=== PATIENT | female | born 1975 | race Caucasian/White ===

== ENCOUNTER → 2020-02-22 | Outpatient (CLI) | payer OTHER, SELFPAY ==
[2020-02-22 08:45] VITALS: BMI 32.8
== END | disposition home or self-care (01) ==
LOC: LABSPEC 02-27 12:30
PROVIDERS: Referring Provider Physician Assistant; Visit Provider Physician Assistant
DX: Z20.828 Contact with and (suspected) exposure to other viral communicable diseases (principal)
CPT/HCPCS: 87635; C9803; U0003

== ENCOUNTER → 2020-10-04 | Outpatient (CLI) | payer OTHER, SELFPAY ==
[2020-10-04 09:10] VITALS: BMI 34.2
[2020-10-09 13:46] LABS: HPV APTIMA, High Risk Negative (Negative)
== END | disposition home or self-care (01) ==
PROVIDERS: Referring Provider Obstetrics & Gynecology; Visit Provider Obstetrics & Gynecology
DX: Z12.4 Encounter for screening for malignant neoplasm of cervix (principal)
CPT/HCPCS: 87624; 88175; G0145

== ENCOUNTER → 2020-11-08 08:01 | Outpatient (CLI) | payer OTHER, SELFPAY ==
[2020-10-04 09:10] VITALS: BMI 34.2
--- NOTE | 2020-11-08 08:21 | BI_ITS ---
MAMMOGRAPHY - BILATERAL SCREENING 3-D TOMOSYNTHESIS REASON FOR EXAM: Female, 45 years old. screening mammogram PERTINENT HISTORY: No significant family history. TECHNIQUE: 2-D mammograms and 3-D Tomosynthesis of the breast (s) were performed. CAD was performed. COMPARISON: 2019 FINDINGS: The breast composition is heterogeneously dense that can obscure small breast masses. Scattered benign calcifications are seen. No dense spiculated masses or suspicious microcalcifications are identified. No architectural distortion is identified. There is no skin thickening or retraction. There has been no significant change since the prior study. BI/SCRN MAMM (CAD)W/ANGELA BILAT IMPRESSION: No mammographic signs of malignancy. Routine yearly mammograms recommended. ASSESSMENT CATEGORY: BIRADS Category 2: Benign. A letter regarding these results will be sent to the patient by the facility within 30 days. FOLLOW UP RECOMMENDATION: Yearly follow up mammogram recommended. (A) Approximately 10% of breast cancers are not detected by mammography. A normal mammogram should not delay biopsy of a clinically suspicious abnormality. Electronically Signed: Rob Pacheco MD at 9:43 EDT , Service support ,
== END ==
PROVIDERS: Referring Provider Obstetrics & Gynecology; Visit Provider Obstetrics & Gynecology
DX: Z12.31 Encounter for screening mammogram for malignant neoplasm of breast (principal)
CPT/HCPCS: 77063; 77067

== ENCOUNTER → 2021-11-14 | Outpatient (CLI) | payer OTHER, SELFPAY ==
--- NOTE | 2021-11-14 08:08 | US_ITS ---
INDICATION: abnormal uterine bleeding EXAMINATION: Ultrasound US Transvaginal Non-OB TECHNIQUE: Transvaginal (for optimal evaluation of the adnexa) pelvic ultrasound was performed. Grayscale, spectral waveform, and color flow Doppler evaluation of the adnexa. COMPARISON: None. FINDINGS: UTERUS: The uterus is anteverted, and demonstrates unremarkable echogenicity, unremarkable vascularity, unremarkable size, shape and configuration, no evidence of myometrial masses is seen. The uterus measures 9.0 x 5.8 x 4.8 cm The endometrial stripe measures 0.9 cm in AP diameter which is within normal limits. No evidence of endometrial masses or fluid. RIGHT OVARY: The right ovary measures 2.3 x 1.6 x 1.6 cm.. Non-enlarged, normal echogenicity. There is normal arterial inflow and venous outflow present in the right ovary. LEFT OVARY: The left ovary was not visualized, no evidence of left adnexal masses.. FREE FLUID: None. US/Pelvic (Non ) IMPRESSION: Left ovary was not visualized. Unremarkable pelvic ultrasound. Electronically Signed: Ramsey Sanz MD at 11:19 EDT ,
--- NOTE | 2021-11-14 08:08 | US_ITS ---
INDICATION: abnormal uterine bleeding EXAMINATION: Ultrasound US Transvaginal Non-OB TECHNIQUE: Transvaginal (for optimal evaluation of the adnexa) pelvic ultrasound was performed. Grayscale, spectral waveform, and color flow Doppler evaluation of the adnexa. COMPARISON: None. FINDINGS: UTERUS: The uterus is anteverted, and demonstrates unremarkable echogenicity, unremarkable vascularity, unremarkable size, shape and configuration, no evidence of myometrial masses is seen. The uterus measures 9.0 x 5.8 x 4.8 cm The endometrial stripe measures 0.9 cm in AP diameter which is within normal limits. No evidence of endometrial masses or fluid. RIGHT OVARY: The right ovary measures 2.3 x 1.6 x 1.6 cm.. Non-enlarged, normal echogenicity. There is normal arterial inflow and venous outflow present in the right ovary. LEFT OVARY: The left ovary was not visualized, no evidence of left adnexal masses.. FREE FLUID: None. US/Transvaginal Non- IMPRESSION: Left ovary was not visualized. Unremarkable pelvic ultrasound. Electronically Signed: Ramsey Sanz MD at 11:19 EDT ,
== END | disposition home or self-care (01) ==
LOC: US 08:05
PROVIDERS: Referring Provider Obstetrics & Gynecology; Visit Provider Obstetrics & Gynecology
DX: N93.9 Abnormal uterine and vaginal bleeding, unspecified (principal)
CPT/HCPCS: 76830; 76856

== ENCOUNTER → 2021-12-05 | Outpatient (CLI) | payer OTHER, SELFPAY ==
--- NOTE | 2021-12-05 | EMB_PTH ---
PATIENT: ELROY CASTELLON LOC: [facility] U#:[id number] AGE/SX: 46/F ROOM: RE12/05/[address]: Dr. Luzmaria Diaz MD : 1975 BED: DIS: 12/05/2021 SPEC #: [id number] RECD: 12/05/21 16:43 STATUS: LEE REQ #: [id number] JAMEEL: 12/05/21 00:[address]: Luzmaria Diaz DEPT: SURGICAL PATHOLOGY RECD BY: Keeley Matute ENTERED: 12/08/21 08:10 SP TYPE: ENDOM BX/C SKIP DR: No Primary Care Phys Tissues: Endometrium, NOS Procedures: Surgery Specimen Level IV HEADER OPERATION: Endometrial biopsy PRE-OP DIAGNOSIS: Abnormal uterine bleeding TISSUE SUBMITTED: Endometrial biopsy MICROSCOPIC DIAGNOSIS Endometrial biopsy: Disordered proliferative endometrium. NOELLE:herberth 12/09/2021 MICROSCOPIC DESCRIPTION Slides are reviewed. GROSS DESCRIPTION Received is one container labeled with the patient's name and not further designated. The specimen consists of multiple irregular fragments of pink soft tissue mixed with mucoid tissue that in aggregate measure 1.5 x 1 x 0.1 cm. The specimen is totally submitted in one cassette. / SJ:herberth 12/08/2021 TC:5 CPT: 95955
--- NOTE | 2021-12-05 12:39 | BI_ITS ---
MAMMOGRAPHY - BILATERAL SCREENING REASON FOR EXAM: Female, 46 years old. Routine annual screening examination. PERTINENT HISTORY: Grandmother with breast cancer. TECHNIQUE: Digital bilateral breast angela (3D mammographic acquisition) in the CC and MLO projections. 2-D mediolateral oblique (MLO) and craniocaudad (CC) views of both breasts were obtained. CAD: Full Field Digital Mammography with Computer Added Detection was performed. COMPARISON: Comparison is made with prior examination dated 11/08/2020. FINDINGS: Breast Composition: The breasts are heterogeneously dense, which may obscure small masses. There are no dominant masses or suspicious calcifications. Stable small benign-appearing bilateral axillary lymph nodes. No other significant abnormalities are identified. There has been no significant change since the prior study. BI/SCRN MAMM (CAD)W/ANGELA BILAT IMPRESSION: Stable bilateral screening mammogram. Yearly follow-up mammogram recommended. (A) ASSESSMENT CATEGORY: BIRADS Category 2: Benign. A letter regarding these results will be sent to the patient by the facility within 30 days. Approximately 10% of breast cancers are not detected by mammography. A normal mammogram should not delay biopsy of a clinically suspicious abnormality. [id number] Electronically Signed: Haja Gamble MD at 13:35 EDT ,
== END | disposition home or self-care (01) ==
LOC: OPBI 12:38
PROVIDERS: Referring Provider Obstetrics & Gynecology; Visit Provider Obstetrics & Gynecology
DX: Z12.31 Encounter for screening mammogram for malignant neoplasm of breast (principal); N93.9 Abnormal uterine and vaginal bleeding, unspecified
CPT/HCPCS: 77063; 77067; 88305

== ENCOUNTER → 2022-05-01 | Outpatient (CLI) | payer OTHER, SELFPAY ==
[2022-05-01 12:31] LABS: Absolute Lymphocyte Count 1.72 X10^3/uL (0.83-4.51); Absolute Neutrophil Count 2.9 X10^3/uL (2.0-7.7); Basophil# 0.11 X10^3/uL; Eosinophil# 0.22 X10^3/uL; Eosinophils% 4.1 % (0-5); Hemoglobin 15.1 g/dL (12.0-15.0); Lymphocyte # 1.72 X10^3/ul (0.83-4.51); Lymphocyte % 31.7 % (19-41); Mean Corp Hgb Conc 33.6 g/dL (32-36); Mean Corpuscular Hgb 30.8 pg (27.0-32.0); Mean Corpuscular Volume 91.8 fL (81-99); Mean Platelet Vol. 9.4 fl (6.2-12.0); Monocyte# 0.47 X10^3/uL; Monocyte% 8.7 % (0-10); NRBC Flagged by Analyzer 0 % (0-5); Neutrophil % 53.3 % (47-70); Platelet Count 353 K/mm3 (150-450); RBC Distribution Width CV 12.8 % (11.6-14.6); RBC Distribution Width SD 43.2 fl (35.1-43.9); White Blood Count 5.4 K/mm3 (4.4-11.0)
[2022-05-01 13:09] LABS: ALB/GLOB Ratio 0.9 RATIO (0.9-2.4); AST(SGOT) 137 U/L (15-37); Alanine Aminotransfer ALT/SGPT 74 U/L (13-56); Albumin, Serum 4.1 g/dL (3.2-5.0); Alkaline Phosphatase 108 U/L (45-117); Anion Gap 13 (5-15); BUN 22 mg/dL (7-18); BUN/Creat Ratio 17.6 RATIO (10-20); Calcium,Total 9.9 mg/dL (8.5-10.1); Chloride 101 mmol/L (98-107); Cholesterol 180 mg/dL (200); Creatinine, Serum 1.25 mg/dL (0.55-1.02); EST Glomerular Filtration Rate 49 mL/min (>60); Est Glom Filt Rate - Afr Amer 59 mL/min (>60); Globulin 4.4 g/dL (2.2-4.2); Glucose 99 mg/dL (74-106); High Density Lipoprotein 54 mg/dL; Potassium 3.9 mmol/L (3.5-5.1); Protein, Total 8.5 g/dL (6.4-8.2); Sodium Level 138 mmol/L (136-145); Triglycerides 332 mg/dL; Very Low Density Lipoprotein 66 mg/dL (5-40)
== END | disposition home or self-care (01) ==
LOC: BIMLAB 08:15
PROVIDERS: PCP Internal Medicine; Referring Provider Internal Medicine; Visit Provider Internal Medicine
DX: I10 Essential (primary) hypertension (principal); E78.5 Hyperlipidemia, unspecified
CPT/HCPCS: 36415; 80053; 80061; 85025

== ENCOUNTER → 2022-06-05 | Outpatient (CLI) | payer OTHER, SELFPAY ==
[2022-06-05 13:30] LABS: Anion Gap 10 (5-15); BUN 19 mg/dL (7-18); BUN/Creat Ratio 20.5 RATIO (10-20); Chloride 102 mmol/L (98-107); Creatinine, Serum 0.92 mg/dL (0.55-1.02); EST Glomerular Filtration Rate 69 mL/min (>60); Est Glom Filt Rate - Afr Amer 84 mL/min (>60); Glucose 112 mg/dL (74-106); Potassium 3.9 mmol/L (3.5-5.1); Sodium Level 138 mmol/L (136-145)
== END | disposition home or self-care (01) ==
LOC: BIMLAB 10:27
PROVIDERS: PCP Internal Medicine; Referring Provider Internal Medicine; Visit Provider Internal Medicine
DX: I10 Essential (primary) hypertension (principal)
CPT/HCPCS: 36415; 80048

== ENCOUNTER 2022-07-03 09:32 | Emergency (ER) | payer OTHER, SELFPAY ==
[2022-07-03 09:36] VITALS: BP 165/146; PULSE 100; RESP 18; TEMP 36.6; O2SAT 100; BMI 33.0
--- NOTE | 2022-07-03 09:41 | EX.ED.DYSGE1 ---
HPI History of Present Illness Chief Complaint: Edema Narrative Narrative: 47-year-old female here with approximate 6 days of symmetric whole-body swelling noted in her hands bilateral legs. Does note left greater than right lower extremity edema. She denies any history of DVT, recent surgery, recent immobilization, chest pain, shortness of breath, hemoptysis, estrogen use. She denies any history of alcohol use, any yellowing of the skin or eyes, no upper quadrant abdominal pain. Denies any decreased urination or history of kidney failure. [facility] PFS Medical History Abnormal Pap smear of cervix Anxiety and depression Chronic cough Colon cancer screening GERD (gastroesophageal reflux disease) Health care maintenance Nonalcoholic fatty liver disease Swallowing disorder Swelling of left elbow Home Medications atorvastatin 20 mg tablet 20 mg PO DAILY #90 tabs 04/24/22 [Rx Last Taken Unknown] hydrochlorothiazide 25 mg tablet 25 mg PO DAILY #90 tabs 04/24/22 [Rx Last Taken Unknown] losartan 100 mg tablet 100 mg PO DAILY #90 tabs 04/24/22 [Rx Last Taken Unknown] omeprazole 40 mg capsule,delayed release 40 mg PO DAILY #90 caps 04/24/22 [Rx Last Taken Unknown] sertraline 50 mg tablet 50 mg PO DAILY #90 tabs 04/24/22 [Rx Last Taken Unknown] prednisone 20 mg tablet 20 mg PO DAILY 5 days #5 tabs 07/03/22 [Rx Last Taken Unknown] Allergy/AdvReac Type Severity Reaction Status Date / Time codeine Allergy Mild uknown Verified 07/03/22 09:37 Sulfa (Sulfonamide Allergy Mild rash Verified 07/03/22 09:37 Antibiotics) Family History Grandmother Diabetes CVA (cerebral vascular accident) Breast cancer Aunt Diabetes Ovarian cancer Uncle Diabetes Cancer STOMACH Father Heart disease Arthritis Mother Anxiety Surgical History S/P wisdom tooth extraction Social History Smoking Status: Former smoker alcohol intake: current alcohol intake frequency: a few times a month details: occasionally substance use type: does not use caffeine: Yes what type of physical activity do you participate in: none seatbelt use: always do you feel safe at home: Yes additional social history: -Alexsander ROS ROS ED ROS Narrative Constitutional: Denies fever HEENT: Denies sore throat Neck: Denies neck pain Cardiovascular: Denies chest pain, syncope Respiratory: Denies shortness of breath GI: Denies nausea vomiting or abdominal pain : Denies changes in urinary habits Musculoskeletal: Denies muscle or joint pain, endorses lower extremity edema Neurologic: Denies numbness weakness or loss of sensation Skin denies rash EXAM Physical Exam Narrative Exam Narrative: I nursing triage notes reviewed, Vital signs reviewed Constitutional: please see mdm HENT: MMM Eyes: Pupils equal round and reactive to light, Extraocular muscles intact Neck: No stridor, no JVD, full neck ROM Lungs: Clear to auscultation, No wheezing or rales. No increased work of breathing, no conversational dyspnea, no accessory muscle use, no nasal flaring. No respiratory distress noted Heart: Regular rate and rhythm, No murmurs, No rubs and No gallops, 2+ distal pulses (radial, femoral, posterior tibial) in all extremities Abdomen: Soft, there is no tenderness, rigidity, rebound or guarding, no obvious peritoneal signs, no palpable pulsatile abdominal masses, no auscultated abdominal bruit : No CVAT Extremities: 1+ pitting edema noted bilateral lower extremities, bilateral hands. Left lower extremity slightly more edematous than right Neuro: No focal neurological deficits, cranial nerves II through XII intact, 5/5 strength in all extremities. Intact sensation to light touch in all extremities, 2+ reflexes bilateral patella dens. Normal gait. No ataxia. Skin: No rash or lesions noted Const Vital Signs: 07/03/22 09:36 07/03/22 10:17 07/03/22 12:35 Temperature 98 F Temperature Source Temporal Pulse Rate 100 82 79 Respiratory Rate 18 12 16 Blood Pressure 165/146 H 119/80 Blood Pressure Mean 152 Pulse Ox 100 98 95 Oxygen Delivery Method Room Air Room Air [facility] [place] Narr[place] Medical decision making narrative: Chief Complaint: Swelling External records reviewed: No recent advanced imaging of the chest I considered the following differential diagnosis: Heart failure, liver failure, renal failure, systemic autoimmune disease. I obtained a broad lab and imaging work-up to further elucidate etiology patient complaints. Patient's EKG showed no evidence of arrhythmia, myocardial ischemia. Labs and images were remarkable for no evidence of decreased liver synthetic function, severe anemia, severe renal failure, liver failure, ACS, heart failure, DVT. The etiology of the patient's complaints is unclear however unlikely be associate with something life or limb threatening given stable vital signs, benign exam, benign lab and imaging work-up. She was given a dose of Decadron here and prednisone for home-going in attempt to decrease inflammation. Patient was given instructions to follow with her primary care physician to return to the emergency department if symptoms change or worsen in any way Factors affecting care: Nonalcoholic fatty liver disease, hyperlipidemia, hypertension Social determinants of health: Occasional alcohol use, former smoker History obtained from others: None Shared decision making: I will have a discussion with the patient and or visitors regarding risk/benefits of further testing or admission. They will be made aware of of the risk/benefits inherent in this decision they will be given the opportunity to voice understanding. Consults: None Lab Data Attestation: I reviewed the patient's lab results. Lab results narrative: No evidence of decreased liver synthetic function LFTs show no evidence of hepatobiliary pathology. BMP without evidence of significant electrolyte abnormalities, no anion gap, no acute kidney injury. Troponin is negative, no evidence of myocardial ischemia Labs: Laboratory Results - last 24 hr 07/03/22 07/03/22 07/03/22 10:23 10:23 10:23 PT 13.2 INR 1.0 Sodium 136 Potassium 3.5 Chloride 102 Carbon Dioxide 27.0 Anion Gap 7 BUN 17 Creatinine 0.79 Estim Creat Clear Calc 76.02 Est GFR (MDRD) Af Amer 101 Est GFR (MDRD) Non-Af 83 BUN/Creatinine Ratio 21.6 H Glucose 112 H Calcium 10.0 Total Bilirubin 0.70 Direct Bilirubin 0.18 AST 26 ALT 37 Alkaline Phosphatase 109 Troponin I High Sens 3 B-Natriuretic Peptide Total Protein 8.3 H Albumin 3.6 Globulin 4.7 H 07/03/22 10:23 PT INR Sodium Potassium Chloride Carbon Dioxide Anion Gap BUN Creatinine Estim Creat Clear Calc Est GFR (MDRD) Af Amer Est GFR (MDRD) Non-Af BUN/Creatinine Ratio Glucose Calcium Total Bilirubin Direct Bilirubin AST ALT Alkaline Phosphatase Troponin I High Sens B-Natriuretic Peptide 19.1 Total Protein Albumin Globulin Radiography Chest X-Ray - ED: Read by ED Physician Diagnostic Testing: Clinical Impression(s) from Imaging Studies Chest X-Ray 07/03/22 09:57 IMPRESSION: Normal x-ray examination of the chest. Electronically Signed: Haja Gamble MD at 11:01 EDT , Venous Doppler Study 07/03/22 09:57 Interpretation Summary There is no evidence of left lower extremity deep vein thrombosis. Left great saphenous vein appears patent and compressible segmentally. Normal flow patterns right common femoral vein Ordering Physician: Leopoldo Marshall Referring Physician: Edmund Rodrigues Performed By: Zaina Sharpe, VENITA, T I have personally reviewed the patient's chest x-ray. Chest x-ray is unremarkable for pulmonary edema, pneumothorax, pneumonia or focal cardiopulmonary abnormality. EKG Initial EKG: Attestation: I personally reviewed and interpreted this EKG as follows: Comments: EKG with normal sinus rhythm, normal axis, normal intervals, no STEMI Prior EKG tracings: not available for review Discharge Plan Triage Chief Complaint: Edema ED Provider: Leopoldo Marshall Dx/Rx/DC Orders Clinical Impression: Edema Instructions: ED Peripheral Edema, Bilateral Prescriptions: New prednisone 20 mg tablet 20 mg PO DAILY 5 Days Qty: 5 0RF No Action omeprazole 40 mg capsule,delayed release(DR/EC) 40 mg PO DAILY Qty: 90 2RF atorvastatin 20 mg tablet 20 mg PO DAILY Qty: 90 3RF hydrochlorothiazide 25 mg tablet 25 mg PO DAILY Qty: 90 3RF sertraline 50 mg tablet 50 mg PO DAILY Qty: 90 3RF losartan 100 mg tablet 100 mg PO DAILY Qty: 90 3RF Stand Alone Forms: ED Work / School Excuse Primary Care Provider: Edmund Rodrigues Referrals: Edmund Rodrigues MD [Primary Care Provider] - Activity Restrictions/Additional Instructions: Please take prednisone as prescribed. Please have your primary care physician for further outpatient evaluation and further treatment. Disposition Disposition: Home, Self Care Discharge Date/Time: 07/03/22 12:42
--- NOTE | 2022-07-03 09:57 | RAD_ITS ---
STUDY: X-RAY CHEST REASON FOR EXAM: Female, 47 years old. Edema TECHNIQUE: Single AP portable view of the chest. COMPARISON: None. FINDINGS: EKG electrodes are seen. The lungs are clear and expanded. There is no demonstrated pleural abnormality. Normal size heart. Normal mediastinum and alva. Normal visualized pulmonary arteries. Normal visualized aortic arch and descending thoracic aorta. Normal visualized thoracic spine. Normal visualized ribs, clavicles, and shoulders. There is no demonstrated abnormality of the visualized soft tissue structures of the upper abdomen. RAD/Chest 1 View (Portable) IMPRESSION: Normal x-ray examination of the chest. Electronically Signed: Haja Gamble MD at 11:01 EDT ,
--- NOTE | 2022-07-03 09:57 | VDLE_ITS ---
Reason For Study: Swelling RIGHT LEFT CFV is compressible, spontaneous, phasic, GSV is normal. competent and demonstrates normal CFV is compressible, spontaneous, phasic, augmentation. competent, and demonstrates normal Procedure augmentation. This is a venous duplex using B-mode, color FV is compressible, spontaneous, phasic, flow and spectral Doppler. competent and demonstrates normal Exam performed portable in ED. augmentation. A preliminary report was called and/or faxed POP V is compressible, spontaneous, phasic, to Dr. Marshall. competent and demonstrates normal augmentation. T/P Trunk is compressible. PTV is compressible. LT PerV is compressible. VL/Venous Duplex US, Unilateral Interpretation Summary There is no evidence of left lower extremity deep vein thrombosis. Left great s aphenous vein appears patent and compressible segmentally. Normal flow patterns right common femoral vein Ordering Physician: Leopoldo Marshall Referring Physician: Edmund Rodrigues Performed By: Zaina Sharpe, VENITA, RVT
--- NOTE | 2022-07-03 09:57 | EKG12_ITS ---
Test Reason : EDEMA Blood Pressure : / mmHG Vent. Rate : 078 BPM Atrial Rate : 078 BPM P-R Int : 162 ms QRS Dur : 076 ms QT Int : 364 ms P-R-T Axes : 018 047 026 degrees QTc Int : 414 ms Normal sinus rhythm Normal ECG Confirmed by CAMACHO CHOI, ZACH ([id number]), continuity editor JORGE MARIN ([id number]) on 07/06/2022 2:13:26 PM Referred By: Confirmed By:ZACH SAUER MD
[2022-07-03 10:17] VITALS: PULSE 82; RESP 12; O2SAT 98
[2022-07-03] MEDS: dexAMETHasone 4 MG/ML Vial IV (10:22)
[2022-07-03 10:40] LABS: Prothrombin Time (Protime)PT. 13.2 SECONDS (11.7-14.9)
[2022-07-03 10:48] LABS: AST(SGOT) 26 U/L (15-37); Alanine Aminotransfer ALT/SGPT 37 U/L (13-56); Albumin, Serum 3.6 g/dL (3.2-5.0); Alkaline Phosphatase 109 U/L (45-117); Bilirubin, Direct 0.18 mg/dL (0.00-0.30); Globulin 4.7 g/dL (2.2-4.2); Protein, Total 8.3 g/dL (6.4-8.2)
[2022-07-03 10:57] LABS: Anion Gap 7 (5-15); BUN 17 mg/dL (7-18); BUN/Creat Ratio 21.6 RATIO (10-20); Chloride 102 mmol/L (98-107); Creatinine, Serum 0.79 mg/dL (0.55-1.02); EST Glomerular Filtration Rate 83 mL/min (>60); Est Glom Filt Rate - Afr Amer 101 mL/min (>60); Estimated Creatinine Clearance 76.02 ml/min; Glucose 112 mg/dL (74-106); Potassium 3.5 mmol/L (3.5-5.1); Sodium Level 136 mmol/L (136-145); Troponin-I HS 3 pg/mL (3.0-54.0)
[2022-07-03 11:35] LABS: BNP,B-Type NATRIURETIC PEPTIDE 19.1 pg/mL (0-100)
--- NOTE | 2022-07-03 12:08 | EDS_ITS ---
HPI History of Present Illness Chief Complaint: Edema Narrative Narrative: 47-year-old female here for diffuse edema. Notes has been going on for last several days Notes pain associate with edema. Denies any chest pain or shortness of breath. Does note left lower extremity leg swelling. Patient denies active cancer, being bedridden for greater than 3 days, denies unilateral leg swelling, denies any varicose veins, denies any calf tenderness, denies any edema. Denies major surgery within 12 weeks, recent paralysis, previous DVT. Patient denies alcohol abuse, jaundice. Denies decreased urination or history of kidney failure [facility] Medical History Abnormal Pap smear of cervix Anxiety and depression Chronic cough Colon cancer screening GERD (gastroesophageal reflux disease) Health care maintenance Nonalcoholic fatty liver disease Swallowing disorder Swelling of left elbow Home Medications atorvastatin 20 mg tablet 20 mg PO DAILY #90 tabs 04/24/22 [Rx Last Taken Unknown] hydrochlorothiazide 25 mg tablet 25 mg PO DAILY #90 tabs 04/24/22 [Rx Last Taken Unknown] losartan 100 mg tablet 100 mg PO DAILY #90 tabs 04/24/22 [Rx Last Taken Unknown] omeprazole 40 mg capsule,delayed release 40 mg PO DAILY #90 caps 04/24/22 [Rx Last Taken Unknown] sertraline 50 mg tablet 50 mg PO DAILY #90 tabs 04/24/22 [Rx Last Taken Unknown] prednisone 20 mg tablet 20 mg PO DAILY 5 days #5 tabs 07/03/22 [Rx Last Taken Unknown] Allergy/AdvReac Type Severity Reaction Status Date / Time codeine Allergy Mild uknown Verified 07/03/22 09:37 Sulfa (Sulfonamide Allergy Mild rash Verified 07/03/22 09:37 Antibiotics) Family History Grandmother Diabetes CVA (cerebral vascular accident) Breast cancer Aunt Diabetes Ovarian cancer Uncle Diabetes Cancer STOMACH Father Heart disease Arthritis Mother Anxiety Surgical History S/P wisdom tooth extraction Social History Smoking Status: Former smoker alcohol intake: current alcohol intake frequency: a few times a month details: occasionally substance use type: does not use caffeine: Yes what type of physical activity do you participate in: none seatbelt use: always do you feel safe at home: Yes additional social history: -Alexsander ROS ROS ED ROS Narrative Constitutional: Denies fever HEENT: Denies sore throat Neck: Denies neck pain Cardiovascular: Denies chest pain, syncope Respiratory: Denies shortness of breath GI: Denies nausea vomiting or abdominal pain : Denies changes in urinary habits Musculoskeletal: Denies muscle or joint pain endorses diffuse edema Neurologic: Denies numbness weakness or loss of sensation Skin denies rash EXAM Physical Exam Narrative Exam Narrative: Nursing triage notes reviewed, Vital signs reviewed Constitutional: please see mdm HENT: MMM Eyes: Pupils equal round and reactive to light, Extraocular muscles intact Neck: No stridor, no JVD, full neck ROM Lungs: Clear to auscultation, No wheezing or rales. No increased work of breathing, no conversational dyspnea, no accessory muscle use, no nasal flaring. No respiratory distress noted Heart: Regular rate and rhythm, No murmurs, No rubs and No gallops, 2+ distal pulses (radial, femoral, posterior tibial) in all extremities Abdomen: Soft, there is no tenderness, rigidity, rebound or guarding, no obvious peritoneal signs, no palpable pulsatile abdominal masses, no auscultated abdominal bruit : No CVAT Extremities: 1+ edema Neuro: No focal neurological deficits, cranial nerves II through XII intact, 5/5 strength in all extremities. Intact sensation to light touch in all extremities, 2+ reflexes bilateral patella dens. Normal gait. No ataxia. Skin: No rash or lesions noted Const Vital Signs: 07/03/22 09:36 07/03/22 10:17 07/03/22 12:35 Temperature 98 F Temperature Source Temporal Pulse Rate 100 82 79 Respiratory Rate 18 12 16 Blood Pressure 165/146 H 119/80 Blood Pressure Mean 152 Pulse Ox 100 98 95 Oxygen Delivery Method Room Air Room Air MDM [facility] MDM Narrative Medical decision making narrative: Chief Complaint: Edema External records reviewed: No recent echocardiograms noted in the chart I considered the following differential diagnosis: Liver failure, kidney failure, heart failure, systemic autoimmune disease I obtained a broad lab and imaging work-up to further elucidate etiology patient complaints. Labs evidence of liver failure, decreased liver synthetic function, heart failure, myocardial ischemia, anemia, electrolyte abnormalities. Chest x- ray no evidence of volume overload. The patient's etiology is unclear but unli jovanni be life-threatening given her stable vitals, benign exam and reassuring labs. Also obtain DVT ultrasound was negative. Factors affecting care: None Social determinants of health: None History obtained from others: None Shared decision making: I will have a discussion with the patient and or visitors regarding risk/benefits of further testing or admission. They will be made aware of of the risk/benefits inherent in this decision they will be given the opportunity to voice understanding. Consults: None Lab Data Attestation: I reviewed the patient's lab results. Lab results narrative: PT/INR within normal limits, no coagulopathy or decreased liver synthetic function BMP without evidence of significant electrolyte abnormalities, no anion gap, no acute kidney injury. LFTs show no evidence of hepatobiliary pathology. Troponin is negative, no evidence of myocardial ischemia BNP within normal limits suggestive of no volume overload, increased transmural wall pressure increased ventricular stretch Labs: Laboratory Results - last 24 hr 07/03/22 07/03/22 07/03/22 10:23 10:23 10:23 PT 13.2 INR 1.0 Sodium 136 Potassium 3.5 Chloride 102 Carbon Dioxide 27.0 Anion Gap 7 BUN 17 Creatinine 0.79 Estim Creat Clear Calc 76.02 Est GFR (MDRD) Af Amer 101 Est GFR (MDRD) Non-Af 83 BUN/Creatinine Ratio 21.6 H Glucose 112 H Calcium 10.0 Total Bilirubin 0.70 Direct Bilirubin 0.18 AST 26 ALT 37 Alkaline Phosphatase 109 Troponin I High Sens 3 B-Natriuretic Peptide Total Protein 8.3 H Albumin 3.6 Globulin 4.7 H 07/03/22 10:23 PT INR Sodium Potassium Chloride Carbon Dioxide Anion Gap BUN Creatinine Estim Creat Clear Calc Est GFR (MDRD) Af Amer Est GFR (MDRD) Non-Af BUN/Creatinine Ratio Glucose Calcium Total Bilirubin Direct Bilirubin AST ALT Alkaline Phosphatase Troponin I High Sens B-Natriuretic Peptide 19.1 Total Protein Albumin Globulin Radiography Chest X-Ray - ED: Read by ED Physician Diagnostic Testing: Clinical Impression(s) from Imaging Studies Chest X-Ray 07/03/22 09:57 IMPRESSION: Normal x-ray examination of the chest. Electronically Signed: Haja Gamble MD at 11:01 EDT , Venous Doppler Study 07/03/22 09:57 Interpretation Summary There is no evidence of left lower extremity deep vein thrombosis. Left great saphenous vein appears patent and compressible segmentally. Normal flow patterns right common femoral vein Ordering Physician: Leopoldo Marshall Referring Physician: Edmund Rodrigues Performed By: Zaina Sharpe, VENITA, RVT I have personally reviewed the patient's chest x-ray. Chest x-ray is unremarkable for pulmonary edema, pneumothorax, pneumonia or focal cardiopulmonary abnormality. EKG Initial EKG: Attestation: I personally reviewed and interpreted this EKG as follows: Comments: EKG with normal sinus rhythm, normal axis, normal intervals, no STEMI Discharge Plan Triage Chief Complaint: Edema ED Provider: Leopoldo Marshall Dx/Rx/DC Orders Clinical Impression: Edema Instructions: ED Peripheral Edema, Bilateral Prescriptions: New prednisone 20 mg tablet 20 mg PO DAILY 5 Days Qty: 5 0RF No Action omeprazole 40 mg capsule,delayed release(DR/EC) 40 mg PO DAILY Qty: 90 2RF atorvastatin 20 mg tablet 20 mg PO DAILY Qty: 90 3RF hydrochlorothiazide 25 mg tablet 25 mg PO DAILY Qty: 90 3RF sertraline 50 mg tablet 50 mg PO DAILY Qty: 90 3RF losartan 100 mg tablet 100 mg PO DAILY Qty: 90 3RF Stand Alone Forms: ED Work / School Excuse Primary Care Provider: Edmund Rodrigues Referrals: Edmund Rodrigues MD [Primary Care Provider] - Activity Restrictions/Additional Instructions: Please take prednisone as prescribed. Please have your primary care physician for further outpatient evaluation and further treatment. Disposition Disposition: Home, Self Care Discharge Date/Time: 07/03/22 12:42
[2022-07-03 12:35] VITALS: BP 119/80; PULSE 79; RESP 16; O2SAT 95
== END 2022-07-03 12:42 | disposition home or self-care (01) ==
PROVIDERS: Emergency Provider Emergency Medicine; PCP Internal Medicine; Visit Provider Emergency Medicine
DX: R60.0 Localized edema (principal); E78.5 Hyperlipidemia, unspecified; K76.0 Fatty (change of) liver, not elsewhere classified; Z87.891 Personal history of nicotine dependence; K21.9 Gastro-esophageal reflux disease without esophagitis; Z79.899 Other long term (current) drug therapy; F41.8 Other specified anxiety disorders; I10 Essential (primary) hypertension
CPT/HCPCS: 71045; 80048; 80076; 83880; 84484; 85610; 93005; 93971; 96374; 99284; A4216

== ENCOUNTER 2022-08-10 08:32 | Day surgery (SDC) | payer OTHER, SELFPAY ==
[2022-08-10] VITALS (7 sets, daily range): BP systolic 91–100; BP diastolic 54–70; PULSE 82–110; RESP 16–18; TEMP 36.4–36.8; O2SAT 93–98; BMI 32.5
--- NOTE | 2022-08-10 | GASB_PTH ---
PATIENT: ELROY CASTELLON LOC: EN U#:[id number] AGE/SX: 47/F ROOM: RE08/10/[address]: Dr. Jane Martinez MD : 1975 BED: DIS: 08/10/2022 SPEC #: [id number] RECD: 08/10/22 13:07 STATUS: LEE SHAYNA #: [id number] JAMEEL: 08/10/22 00:[address]: Jane Martinez DEPT: SURGICAL PATHOLOGY RECD BY: Bony Desouza ENTERED: 08/10/22 13:08 SP TYPE: Gastric Bx SKIP DR: Dr. Edmund Rodrigues MD Tissues: A - Gastric mucous membrane B - Gastric mucous membrane Procedures: Surgery Specimen Level IV HEADER OPERATION: [place]oscopy[place] [place] PRE-OP DIAGNOSIS: GERD, screening TISSUE SUBMITTED: A ? Antrum biopsy for H. pylori and histology, B ? Gastric body biopsy MICROSCOPIC DIAGNOSIS A. Antrum, biopsy: Mild gastritis. See microscopic description and comment. B. Gastric body, biopsy: Mild gastritis. See microscopic description. NOELLE:herberth 08/11/2022 COMMENT A. The results of immunohistochemistry for Helicobacter pylori will be reported separately ([id number]). MICROSCOPIC DESCRIPTION Slides are reviewed. A & B. The specimen shows fragments of gastric mucosa with chronic inflammatory cell infiltrates in the lamina propria consisting of lymphocytes and plasma cells, consistent with mild chronic gastritis. GROSS DESCRIPTION A - Received in fixative is one container labeled with the patient's name and designated antrum biopsy. The specimen consists of multiple irregular fragments of light obrien soft tissue that in aggregate measure 0.2 x 0.2 x 0.1 cm. The specimen is totally submitted in one cassette. B - Received in fixative is one container labeled with the patient's name and designated gastric body biopsy. The specimen consists of two irregular fragments of light obrien soft tissue that in aggregate measure 0.5 x 0.3 x 0.1 cm. The specimen is totally submitted in one cassette. / SJ:herberth 08/10/2022 TC:3 CPT: 68578 x2
--- NOTE | 2022-08-10 08:45 | H&P.OPEN ---
HPI - General General Date of Admission: 08/10/22 HPI Narrative ELROY CASTELLON, is a 47 F who presents for EGD and colonoscopy. Patient's never had an EGD. Patient states her reflux is controlled with the omeprazole daily. Patient has never had previous colonoscopy denies any blood in stool has bowel movements daily. office visit 06/13/22 HPI HPI: 47-year-old female presents for EGD and colonoscopy.? Patient never had a previous EGD.? Currently on omeprazole 40 mg p.o. daily per her PCP mid last month due to reflux?burning in her esophagus.? Patient states it is controlled with this.? Patient does have family history maternal side for esophageal cancer in her great great grandma, gastric cancer in her maternal uncle, biliary cancer in her maternal second cousin?no immediate family history of cancer.? Patient never had previous colonoscopy.? Has bowel movements daily denies any blood.? Patient denies any chronic abdominal pain/nausea/reflux/vomiting. [facility] Medical History (Updated 08/06/22 @ 11:46 by Jocy Cole) Abnormal Pap smear of cervix Alcohol use Anxiety Anxiety and depression Chronic cough Colon cancer screening CPAP (continuous positive airway pressure) dependence Difficulty swallowing Former smoker Gastric reflux GERD (gastroesophageal reflux disease) Health care maintenance High cholesterol History of echocardiogram History of edema History of steroid therapy Hypertension Nonalcoholic fatty liver disease Restless legs Swallowing disorder Swelling of left elbow Wears glasses Home Medications atorvastatin 20 mg tablet 20 mg PO DAILY #90 tabs 04/24/22 [Rx Last Taken Unknown] hydrochlorothiazide 25 mg tablet 25 mg PO DAILY #90 tabs 04/24/22 [Rx Last Taken Unknown] losartan 100 mg tablet 100 mg PO DAILY #90 tabs 04/24/22 [Rx Last Taken Unknown] omeprazole 40 mg capsule,delayed release 40 mg PO DAILY #90 caps 04/24/22 [Rx Last Taken Unknown] sertraline 50 mg tablet 50 mg PO DAILY #90 tabs 04/24/22 [Rx Last Taken Unknown] meloxicam 15 mg tablet 15 mg PO DAILY #30 tabs 07/27/22 [Rx Last Taken Unknown] Allergy/AdvReac Type Severity Reaction Status Date / Time codeine Allergy Mild uknown Verified 08/10/22 08:53 Sulfa (Sulfonamide Allergy Mild rash Verified 08/10/22 08:53 Antibiotics) Family History Grandmother Diabetes CVA (cerebral vascular accident) Breast cancer Aunt Diabetes Ovarian cancer Uncle Diabetes Cancer STOMACH Father Heart disease Arthritis Mother Anxiety Surgical History S/P wisdom tooth extraction Social History Smoking Status: Former smoker alcohol intake: current alcohol intake frequency: a few times a month details: occasionally substance use type: does not use caffeine: Yes what type of physical activity do you participate in: none seatbelt use: always do you feel safe at home: Yes additional social history: -Alexsander Past Medical/Surgical History Planned Operation Planned Operative Procedure/s: EGD/CSCOPE Previous Hospitalizations/Surgeries HX Hospitalizations: No Any Problems With Anesthesia: No You/Your Family Experience Fever (Hyperthermia) With Anes: No Cholinesterase deficiency: No Cardiovascular Hx Hypertension: Yes (CONTROLLED WITH MEDS) Respiratory Hx Sleep Apnea: Yes CPAP: Yes BIPAP: No Hx Respiratory Tract Infection/Cold (presently): No Result (for STOP score): Positive Smoking Status: Former smoker Neurological Does patient have nerve stimulator: No Reproduction : No Allergies codeine Allergy (Mild, Verified 08/10/22 08:53) uknown Sulfa (Sulfonamide Antibiotics) Allergy (Mild, Verified 08/10/22 08:53) rash Discharge Is Pt Admitted From a Snf, or a [facility]: No After D/C, Where Do you Plan to Go: Return Home Physical Exam Const alert, oriented x3 and no apparent distress HEENT normocephalic and head/scalp atraumatic Resp normal respiratory effort Cardio regular rate GI soft to palpation and non-tender; Negative for non-distended Palpation: Negative for guarding Extremity no clubbing, cyanosis or edema Neuro CN's II-XII intact bilaterally Psych mental status grossly normal Assessment & Plan Assessment/Plan (1) GERD (gastroesophageal reflux disease): (2) Colon cancer screening: PLAN: Plan Plan for EGD and colonoscopy. Surgery Risks - Colonoscopy I discussed with the patient the risks of the procedure: Yes Risks Include but are not Limited To: Risks include but are not limited to: Bleeding, perforation requiring further surgery, inability to complete colonoscopy requiring barium enema.
[2022-08-10 08:57] LABS: Internal QC Validated? YES +Cl - CLEAR BKGD; Pregnancy, Urine Negative Negative
[2022-08-10] MEDS: Lactated Ringers 1,000 ML 15 ML IV (09:10)
--- NOTE | 2022-08-10 09:45 | IMM_PTH ---
PATIENT: ELROY CASTELLON LOC: EN U#:[id number] AGE/SX: 47/F ROOM: RE08/10/[address]: Dr. Jane Martinez MD : 1975 BED: DIS: 08/10/2022 SPEC #: [id number] RECD: 08/10/22 13:36 STATUS: LEE REQ #: [id number] JAMEEL: 08/10/22 09:[address]: Jane Martinez DEPT: IMMUNOHISTOCHEMISTRY RECD BY: Polly Vasquez ENTERED: 08/10/22 13:36 SP TYPE: IMMUNO OTHR DR: Dr. Edmund Rodrigues MD Tissues: A - Stomach, NOS Procedures: H Pylori (initial) PHYSICIAN & INSTITUTION [place] [id number] SPECIMEN INFORMATION: Tissue Source: A ? Antrum biopsy Clinical Info: GERD, screening Specimen Number: [id number] CPT code: 74079 METHODOLOGY: Deparaffinized sections of prefer/formalin-fixed tissue or PAP/DQ stained slides are incubated with monoclonal/polyclonal antibodies/oligonucleotide probes. Localization is made via biotin free immunoperoxidase method. Appropriate controls are performed and reacted as expected. Results on target cell population are indicated in the following table: RESULTS: ANTIBODY / CLONE RESULT Block A H Pylori (polyclonal) negative These tests were developed and their performance characteristics determined by [facility]. They may not have been cleared or approved by the U.S. Food and Drug Administration. The FDA has determined that such clearance or approval is not necessary. The above immunohistochemical/dualISH markers are ordered and reviewed by the Pathologist. INTERPRETATION: A. Antrum, biopsy: Negative for Helicobacter pylori organisms. SJ:herberth 08/11/2022
--- NOTE | 2022-08-10 09:55 | OP.EGD_ITS ---
Patient Name: Chelsey Saldivar Procedure Date: 08/10/2022 9:22 AM Date of : 1975 Age: 47 Procedure: Upper GI endoscopy Indications: Heartburn Providers: Jane Martinez MD Medicines: Monitored Anesthesia Care Patient Profile: This is a 47 year old female. Complications: No immediate complications. Procedure: Pre-Anesthesia Assessment: - Prior to the procedure, a History and Physical was performed, and patient medications and allergies were reviewed. The patient's tolerance of previous anesthesia was also reviewed. The risks and benefits of the procedure and the sedation options and risks were discussed with the patient. All questions were answered, and informed consent was obtained. Prior Anticoagulants: The patient has taken no previous anticoagulant or antiplatelet agents. ASA Grade Assessment: Per anesthesia. After reviewing the risks and benefits, the patient was deemed in satisfactory condition to undergo the procedure. After obtaining informed consent, the endoscope was passed under direct vision. Throughout the procedure, the patient's blood pressure, pulse, and oxygen saturations were monitored continuously. The colonoscope was introduced through the mouth, and advanced to the second part of duodenum. The upper GI endoscopy was accomplished without difficulty. The patient tolerated the procedure well. Scope In: 9:28:23 AM Scope Out: 9:33:19 AM Total Procedure Duration Time 0 hours 4 minutes 56 seconds Findings: The Z-line was variable and was found 40 cm from the incisors. Moderate inflammation characterized by erythema was found in the gastric antrum. Biopsies were taken with a cold forceps for histology. Biopsies were taken with a cold forceps for Helicobacter pylori cultures. The examined duodenum was normal. The cardia and gastric fundus were normal on retroflexion. Impression: - Z-line variable, 40 cm from the incisors. - Gastritis. Biopsied. - Normal examined duodenum. Recommendation: - Await pathology results. - Discharge patient to home. - Resume previous diet. - Continue present medications. - Use sucralfate tablets 1 gram PO QID for 2 weeks. Procedure Code(s): --- Professional --- 27747, Esophagogastroduodenoscopy, flexible, transoral; with biopsy, single or multiple Diagnosis Code(s): --- Professional --- K22.8, Other specified diseases of esophagus K29.70, Gastritis, unspecified, without bleeding R12, Heartburn CPT copyright 2017 [employer]. All rights reserved. The codes documented in this report are preliminary and upon remote coders review may be revised to meet current compliance requirements. MD Jane Gray MD 08/10/2022 9:55:11 AM This report has been signed electronically. Number of Addenda: 0 Note Initiated On: 08/10/2022 9:22 AM
--- NOTE | 2022-08-10 09:56 | OP.CCLET_ITS ---
08/10/2022 Edmund Rodrigues MD [address] [place] [address] [place] [address] Re : Upper GI endoscopy procedure for Chelsey Saldivar Dear Dr. Rodrigues This procedure was performed on Wednesday, August 10, 2022. My impressions and recommendations are as follows: Impressions : - Z-line variable, 40 cm from the incisors. - Gastritis. Biopsied. - Normal examined duodenum. Recommendations : - Await pathology results. - Discharge patient to home. - Resume previous diet. - Continue present medications. - Use sucralfate tablets 1 gram PO QID for 2 weeks. My findings are described in the full procedure note, which is enclosed. If I can be of further assistance, please feel free to contact me at Doctor phone number(s): , Work: . Sincerely, MD Jane Gray MD 08/10/2022 9:55:11 AM This report has been signed electronically.
--- NOTE | 2022-08-10 09:59 | OP.CCLET_ITS ---
08/10/2022 Edmund Rodrigues MD [address] [place] [address] [place] [address] Re : Colonoscopy procedure for Chelsey Feldmanner Dear Dr. Rodrigues This procedure was performed on Wednesday, August 10, 2022. My impressions and recommendations are as follows: Impressions : - Hemorrhoids found on perianal exam. - Non-bleeding external and internal hemorrhoids. - The entire examined colon is normal. - No specimens collected. Recommendations : - Discharge patient to home. - Resume previous diet. - Continue present medications. - Repeat colonoscopy in 10 years for screening purposes. My findings are described in the full procedure note, which is enclosed. If I can be of further assistance, please feel free to contact me at Doctor phone number(s): , Work: . Sincerely, MD Jane Gray MD 08/10/2022 9:59:13 AM This report has been signed electronically.
--- NOTE | 2022-08-10 09:59 | OP.COLON_ITS ---
Patient Name: Chelsey Saldivar Procedure Date: 08/10/2022 9:33 AM Date of : 1975 Age: 47 Procedure: Colonoscopy Indications: Screening for colorectal malignant neoplasm Providers: Jane Martinez MD Medicines: Monitored Anesthesia Care Patient Profile: This is a 47 year old female. Last Colonoscopy: none. The patient's first colonoscopy is today. Complications: No immediate complications. Procedure: Pre-Anesthesia Assessment: - Prior to the procedure, a History and Physical was performed, and patient medications and allergies were reviewed. The patient's tolerance of previous anesthesia was also reviewed. The risks and benefits of the procedure and the sedation options and risks were discussed with the patient. All questions were answered, and informed consent was obtained. Prior Anticoagulants: The patient has taken no previous anticoagulant or antiplatelet agents. ASA Grade Assessment: Per anesthesia. After reviewing the risks and benefits, the patient was deemed in satisfactory condition to undergo the procedure. After I obtained informed consent, the scope was passed under direct vision. Throughout the procedure, the patient's blood pressure, pulse, and oxygen saturations were monitored continuously. The colonoscope was introduced through the anus and advanced to the cecum, identified by the appendiceal orifice, ileocecal valve and palpation. The colonoscopy was performed without difficulty. The patient tolerated the procedure well. The quality of the bowel preparation was good. Scope In: 9:35:00 AM Scope Withdrawal Time 0 hours 6 minutes 10 seconds Scope Out: 9:47:20 AM Total Procedure Duration Time 0 hours 12 minutes 20 seconds Findings: Hemorrhoids were found on perianal exam. Non-bleeding external and internal hemorrhoids were found. The hemorrhoids were small and Grade I (internal hemorrhoids that do not prolapse). The entire examined colon appeared normal. Impression: - Hemorrhoids found on perianal exam. - Non-bleeding external and internal hemorrhoids. - The entire examined colon is normal. - No specimens collected. Recommendation: - Discharge patient to home. - Resume previous diet. - Continue present medications. - Repeat colonoscopy in 10 years for screening purposes. Procedure Code(s): --- Professional --- 53563, PT, Colonoscopy, flexible; diagnostic, including collection of specimen(s) by brushing or washing, when performed (separate procedure) Diagnosis Code(s): --- Professional --- Z12.11, Encounter for screening for malignant neoplasm of colon K64.0, First degree hemorrhoids CPT copyright 2017 [employer]. All rights reserved. The codes documented in this report are preliminary and upon synthetic gem press operator review may be revised to meet current compliance requirements. MD Jane Gray MD 08/10/2022 9:59:13 AM This report has been signed electronically. Number of Addenda: 0 Note Initiated On: 08/10/2022 9:33 AM
== END 2022-08-10 10:31 | disposition home or self-care (01) ==
LOC: EN 08:35 → AC 08:36
PROVIDERS: Anesthesiology; PCP Internal Medicine; Referring Provider Surgery; Visit Provider Surgery
PROC: 0DJD8ZZ Inspection of Lower Intestinal Tract, Via Natural or Artificial Opening Endoscopic (ICD-10-PCS; CPT 45378; principal; 2022-08-10 09:40)
DX: Z12.11 Encounter for screening for malignant neoplasm of colon (principal); K21.9 Gastro-esophageal reflux disease without esophagitis; Z87.891 Personal history of nicotine dependence; Z80.3 Family history of malignant neoplasm of breast; K29.70 Gastritis, unspecified, without bleeding; I10 Essential (primary) hypertension; E78.00 Pure hypercholesterolemia, unspecified; R12 Heartburn; K22.89 Other specified disease of esophagus; K64.0 First degree hemorrhoids
CPT/HCPCS: 43239; 45378; 81025; 88305; 88342; J7120; J2405

== ENCOUNTER → 2022-09-03 | Outpatient (CLI) | payer OTHER, SELFPAY ==
[2022-09-03 12:21] LABS: Erythrocyte Sedimentation Rate 37 mm/hr (0-30)
[2022-09-03 12:23] LABS: Absolute Lymphocyte Count 1.41 X10^3/uL (0.83-4.51); Absolute Neutrophil Count 5.9 X10^3/uL (2.0-7.7); Basophil# 0.12 X10^3/uL; Basophil% 1.4 % (0-1); Eosinophil# 0.25 X10^3/uL; Hematocrit 40.9 % (37-47); Hemoglobin 13.7 g/dL (12.0-15.0); Lymphocyte # 1.41 X10^3/ul (0.83-4.51); Mean Corp Hgb Conc 33.5 g/dL (32-36); Mean Corpuscular Volume 86.7 fL (81-99); Monocyte# 0.62 X10^3/uL; Monocyte% 7.5 % (0-10); NRBC Flagged by Analyzer 0 % (0-5); Neutrophil # 5.87 X10^3/uL (2.7-7.7); Neutrophil % 70.7 % (47-70); Platelet Count 488 K/mm3 (150-450); RBC Distribution Width CV 12.7 % (11.6-14.6); RBC Distribution Width SD 39.8 fl (35.1-43.9); Red Blood Count 4.72 M/mm3 (4.2-5.4); White Blood Count 8.3 K/mm3 (4.4-11.0)
[2022-09-03 12:34] LABS: BNP,B-Type NATRIURETIC PEPTIDE 16.2 pg/mL (0-100)
[2022-09-03 13:10] LABS: ALB/GLOB Ratio 0.7 RATIO (0.9-2.4); AST(SGOT) 27 U/L (15-37); Alanine Aminotransfer ALT/SGPT 26 U/L (13-56); Albumin, Serum 3.5 g/dL (3.2-5.0); Alkaline Phosphatase 131 U/L (45-117); Anion Gap 10 (5-15); BUN 18 mg/dL (7-18); BUN/Creat Ratio 18.3 RATIO (10-20); Calcium,Total 9.3 mg/dL (8.5-10.1); Chloride 105 mmol/L (98-107); Creatinine, Serum 0.98 mg/dL (0.55-1.02); EST Glomerular Filtration Rate 64 mL/min (>60); Est Glom Filt Rate - Afr Amer 78 mL/min (>60); Globulin 4.8 g/dL (2.2-4.2); Glucose 109 mg/dL (74-106); Potassium 3.6 mmol/L (3.5-5.1); Protein, Total 8.3 g/dL (6.4-8.2); Sodium Level 140 mmol/L (136-145); Thyroid Stim Hormone (TSH) 1.36 uIU/mL (0.358-3.74)
[2022-09-03 15:04] LABS: Hemoglobin A1c 5.5 % (3.8-5.6)
[2022-09-04 12:09] LABS: CCP IgG Antibodies > 250 units (0-19); Lyme Scn Total Ab w/Rflx Negative (Negative)
[2022-09-04 16:10] LABS: ANTINUCLEAR ANTIBODIES DIRECT Negative (Negative); Anti-Centromere B Ab <0.2 AI (0.0-0.9); Anti-Chromatin <0.2 AI (0.0-0.9); Anti-Jo <0.2 AI (0.0-0.9); Anti-Scleroderma-70 AB <0.2 AI (0.0-0.9); Anti-dsDNA Ab <1 IU/mL (0-9); RNP Ab <0.2 AI (0.0-0.9); SJOGREN'S Anti-SS-A test < 0.2 AI (0.0-0.9); SJOGREN'S Anti-SS-B test < 0.2 AI (0.0-0.9); Smith Ab <0.2 AI (0.0-0.9)
== END | disposition home or self-care (01) ==
LOC: BIMLAB 10:23
PROVIDERS: PCP Internal Medicine; Referring Provider Nurse Practitioner Family; Visit Provider Nurse Practitioner Family
DX: M25.9 Joint disorder, unspecified (principal); R60.1 Generalized edema; R73.09 Other abnormal glucose
CPT/HCPCS: 36415; 80053; 83036; 83880; 84443; 85025; 85652; 86038; 86140; 86200; 86225; 86235; 86431; 86618

== ENCOUNTER → 2023-06-11 | Outpatient (CLI) | payer OTHER, SELFPAY ==
--- NOTE | 2023-06-11 09:28 | BI_ITS ---
MAMMOGRAPHY - BILATERAL SCREENING REASON FOR EXAM: Female, 48 years old. Routine annual screening examination. PERTINENT HISTORY: Grandmother with breast cancer. TECHNIQUE: Digital bilateral breast angela (3D mammographic acquisition) in the CC and MLO projections. 2-D mediolateral oblique (MLO) and craniocaudad (CC) views of both breasts were obtained. CAD: Full Field Digital Mammography with Computer Added Detection was performed. COMPARISON: Comparison is made with prior study December 05, 2021 and November 08, 2020. FINDINGS: Breast Composition: The breasts are heterogeneously dense, which may obscure small masses. There are no dominant masses or suspicious calcifications. Stable small benign-appearing bilateral axillary lymph nodes. No other significant abnormalities are identified. There has been no significant change since the prior study. BI/SCRN MAMM (CAD)W/ANGELA BILAT IMPRESSION: Stable bilateral screening mammogram. Yearly follow-up mammogram recommended. (A) ASSESSMENT CATEGORY: BIRADS Category 2: Benign. A letter regarding these results will be sent to the patient by the facility within 30 days. Approximately 10% of breast cancers are not detected by mammography. A normal mammogram should not delay biopsy of a clinically suspicious abnormality. [id number] Electronically Signed: Haja Gamble MD at 11:28 EST ,
== END | disposition home or self-care (01) ==
LOC: OPBI 09:26
PROVIDERS: PCP Nurse Practitioner Family; Referring Provider Nurse Practitioner Family; Visit Provider Nurse Practitioner Family
DX: Z12.31 Encounter for screening mammogram for malignant neoplasm of breast (principal); Z80.3 Family history of malignant neoplasm of breast
CPT/HCPCS: 77063; 77067

== ENCOUNTER → 2024-06-30 | Outpatient (CLI) | payer OTHER, SELFPAY ==
--- NOTE | 2024-06-30 09:45 | BI_ITS ---
EXAM: SCRN MAMM (CAD)W/ANGELA BILAT 06/30/2024 CLINICAL HISTORY: F, Age 49 y/o , SCREENING MAMMOGRAM FOR BREAST CANCER. Family history of breast cancer in maternal grandmother in her 80s. TECHNIQUE: Bilateral screening digital breast tomosynthesis with 2D and 3D images. Computer aided detection. COMPARISON: 06/11/2023, 12/05/2021 FINDINGS: TISSUE DENSITY: The breast tissue is composed of scattered area of fibroglandular density. Bilateral Breast Mammographic Findings: No significant masses, calcifications or other abnormalities are identified. BI/SCRN MAMM (CAD)W/ANGELA BILAT IMPRESSION: There is no mammographic evidence of malignancy. OVERALL FINAL ASSESSMENT: BIRADS 1 NEGATIVE. RECOMMENDATION: Routine annual follow-up in 1 Year A letter with findings and recommendations will be mailed to the patient. Reading Location: [id number]
== END | disposition home or self-care (01) ==
LOC: OPBI 09:52
PROVIDERS: PCP Nurse Practitioner Family; Referring Provider Obstetrics & Gynecology; Visit Provider Obstetrics & Gynecology
DX: Z12.31 Encounter for screening mammogram for malignant neoplasm of breast (principal); Z80.3 Family history of malignant neoplasm of breast
CPT/HCPCS: 77063; 77067